=== PATIENT | male | born 1955 | race Caucasian/White ===

== ENCOUNTER → 2019-09-03 | Outpatient (CLI) | payer BC ==
[2019-09-03 09:11] LABS: Basophils # (auto) 0 uL; Eosinophils # (auto) 0.1 uL; Lymphocytes # (auto) 1.5 uL; Neutrophils # (auto) 6.2 uL; Nucleated Red Blood Cells % 0.1 %; White Blood Cell 8.4 10^3/uL (4.4-10.8)
[2019-09-03 09:14] LABS: Basophils % (auto) 0.3 % (0.0-2.0); Eosinophils % (auto) 0.9 % (0.0-7.0); Hemoglobin 17.6 g/dL (13.5-17.5); Lymphocytes % (auto) 17.4 % (10.0-50.0); Mean Corpuscular Hemoglobin 34.1 pg (28.0-32.0); Mean Corpuscular Hgb Conc. 34.6 g/dL (32.0-36.0); Mean Corpuscular Volume 98.4 fL (80.0-100.0); Monocytes # (auto) 0.6 uL; Monocytes % (auto) 6.9 % (0.0-12.0); Neutrophils % (auto) 74.5 % (37.0-80.0); Platelet Count (auto) 261 10^3/uL (140-450); Red Blood Cells 5.18 10^6/uL (4.5-5.90); Red Cell Distribution Width 13.4 % (11.8-14.3)
[2019-09-03 09:24] LABS: Urine Bacteria NONE SEEN /hpf (None Seen); Urine Blood Negative /uL (Negative); Urine Mucus FEW (None Seen); Urine Specific Gravity 1.014 (1.001-1.035); Urine WBC 8 /hpf (0 - 3)
[2019-09-03 09:44] LABS: Potassium 4.5 mmol/L (3.5-5.1)
[2019-09-03 09:58] LABS: Albumin 3.9 g/dL (3.4-5.0); Bilirubin, Total 0.7 mg/dL (0.2-1.0); Calcium 9.1 mg/dL (8.5-10.1); Total Protein 7.3 g/dL (6.4-8.2)
[2019-09-03 10:06] LABS: Free T4 (Free Thyroxine) 1.01 ng/dL (0.89-1.76)
[2019-09-03 10:13] LABS: Prostate Specific Antigen 5.69 ng/mL (0.0-4.0)
== END | disposition home or self-care (01) ==
LOC: LAB 08:33
PROVIDERS: ATTEND Internal Medicine
DX: N20.0 Calculus of kidney (principal); N52.9 Male erectile dysfunction, unspecified; R05 Cough
CPT/HCPCS: 36415; 80053; 80061; 81001; 84153; 84154; 84403; 84439; 84443; 85025; 85652

== ENCOUNTER → 2020-04-26 | Outpatient (CLI) | payer BC ==
[2020-04-26 09:21] LABS: Basophils # (auto) 0.1 10 ^3/uL (0-0.2); Eosinophils # (auto) 0.1 10 ^3/uL (0-0.8); White Blood Cell 10.3 10^3/uL (4.4-10.8)
[2020-04-26 09:23] LABS: Basophils % (auto) 0.6 % (0.0-2.0); Eosinophils % (auto) 0.7 % (0.0-7.0); Hematocrit 51.6 % (41.0-53.0); Hemoglobin 18.1 g/dL (13.5-17.5); Lymphocytes # (auto) 1.9 10 ^3/uL (0.4-5.4); Lymphocytes % (auto) 18.1 % (10.0-50.0); Mean Corpuscular Hemoglobin 34.5 pg (28.0-32.0); Mean Corpuscular Hgb Conc. 35.2 g/dL (32.0-36.0); Mean Corpuscular Volume 98.1 fL (80.0-100.0); Monocytes # (auto) 0.8 10 ^3/uL (0-1.3); Monocytes % (auto) 7.3 % (0.0-12.0); Neutrophils # (auto) 7.5 10 ^3/uL (1.6-8.6); Neutrophils % (auto) 73.3 % (37.0-80.0); Platelet Count (auto) 272 10^3/uL (140-450); Red Blood Cells 5.26 10^6/uL (4.5-5.90); Red Cell Distribution Width 12.9 % (11.8-14.3)
== END | disposition home or self-care (01) ==
LOC: LAB 09:07
PROVIDERS: ATTEND Internal Medicine
DX: I70.0 Atherosclerosis of aorta (principal); R73.01 Impaired fasting glucose; R97.20 Elevated prostate specific antigen [PSA]
CPT/HCPCS: 36415; 83036; 84153; 84154; 85025

== ENCOUNTER → 2021-06-08 | Day surgery (SDC) | payer BC ==
[2021-06-02 13:04] LABS: Basophils # (auto) 0.1 10 ^3/uL (0-0.2); Basophils % (auto) 0.6 % (0.0-2.0); Eosinophils # (auto) 0 10 ^3/uL (0-0.8); Eosinophils % (auto) 0.3 % (0.0-7.0); Hematocrit 52.2 % (41.0-53.0); Hemoglobin 17.6 g/dL (13.5-17.5); Lymphocytes # (auto) 2.1 10 ^3/uL (0.4-5.4); Lymphocytes % (auto) 20.8 % (10.0-50.0); Mean Corpuscular Hgb Conc. 33.6 g/dL (32.0-36.0); Mean Corpuscular Volume 98.1 fL (80.0-100.0); Monocytes # (auto) 0.6 10 ^3/uL (0-1.3); Neutrophils # (auto) 7.3 10 ^3/uL (1.6-8.6); Neutrophils % (auto) 72.3 % (37.0-80.0); Nucleated Red Blood Cells % 0.1 %; Red Blood Cells 5.32 10^6/uL (4.5-5.90); Red Cell Distribution Width 13.5 % (11.8-14.3); White Blood Cell 10.1 10^3/uL (4.4-10.8)
[2021-06-02 13:07] LABS: Urine Bacteria NONE SEEN /hpf (None Seen); Urine Blood Negative /uL (Negative); Urine Mucus FEW (None Seen); Urine Specific Gravity 1.018 (1.001-1.035); Urine WBC 15 /hpf (0 - 3)
[2021-06-02 13:11] LABS: INR 0.99 (0.9-1.15); Partial Thromboplastin Time 28.9 sec (23.6-33.0)
[2021-06-02 13:44] LABS: Albumin 3.8 g/dL (3.4-5.0); Calcium 9.1 mg/dL (8.5-10.1); Potassium 4.1 mmol/L (3.5-5.1)
[2021-06-02 13:47] LABS: BUN/Creatinine Ratio 9.3; Bilirubin, Total 0.7 mg/dL (0.2-1.0); Total Protein 7.3 g/dL (6.4-8.2)
[~2021-06-08] MED LIST: CIPROFLOXACIN 400MG/200ML 200 ML IV ONE; DexAMETHasone SOD PHOS 10MG/1ML VIAL INJ ONE; HYDROmorphone HCL 2 MG/ML VL IV PRN; LABETALOL HCL 5 MG/ML 4ML SYRINGE IV PRN; MIDAZOLAM HCL 2MG/2ML 2ml VIAL (1mg/ml) IV PRN; MORPHINE SULFATE 4 MG/ML SYR/VIAL IV PRN; ONDANSETRON HCL 4 MG/2 ML VIAL IV PRN; PROPOFOL 10 MG/ML 20 ML IV ONE; ePHEDrine SULFATE 50 MG/ML AMP IV PRN
[2021-06-08 08:45] VITALS: BP 118/59
== END | disposition home or self-care (01) ==
LOC: SUR 06:21
PROVIDERS: ATTEND Urology
DX: R97.20 Elevated prostate specific antigen [PSA] (principal); I10 Essential (primary) hypertension; F17.200 Nicotine dependence, unspecified, uncomplicated; I25.10 Atherosclerotic heart disease of native coronary artery without angina pectoris; Z98.890 Other specified postprocedural states; Z79.899 Other long term (current) drug therapy; Z20.822 Contact with and (suspected) exposure to COVID-19
CPT/HCPCS: 36415; 55700; 80053; 81001; 85025; 85610; 85730; 88312; 88342; J0744; J1100; J2704; U0003; 76872

== ENCOUNTER → 2022-05-24 | Outpatient (CLI) | payer BC ==
[2022-05-24 08:16] LABS: Basophils # (auto) 0.1 10 ^3/uL (0-0.2); Basophils % (auto) 0.6 % (0.0-2.0); Eosinophils # (auto) 0 10 ^3/uL (0-0.8); Eosinophils % (auto) 0.4 % (0.0-7.0); Hemoglobin 18.3 g/dL (13.5-17.5); Lymphocytes # (auto) 1.7 10 ^3/uL (0.4-5.4); Lymphocytes % (auto) 19.1 % (10.0-50.0); Mean Corpuscular Hemoglobin 33.1 pg (28.0-32.0); Mean Corpuscular Volume 97.4 fL (80.0-100.0); Monocytes # (auto) 0.6 10 ^3/uL (0-1.3); Monocytes % (auto) 7.3 % (0.0-12.0); Neutrophils # (auto) 6.5 10 ^3/uL (1.6-8.6); Neutrophils % (auto) 72.6 % (37.0-80.0); Nucleated Red Blood Cells % 0.1 %; Red Blood Cells 5.54 10^6/uL (4.5-5.90); Red Cell Distribution Width 13.5 % (11.8-14.3); White Blood Cell 8.9 10^3/uL (4.4-10.8)
[2022-05-24 08:44] LABS: Urine Bacteria NONE SEEN /hpf (None Seen); Urine Blood Negative /uL (Negative); Urine Mucus FEW (None Seen); Urine Specific Gravity 1.019 (1.001-1.035); Urine WBC 3 /hpf (0 - 3)
[2022-05-24 09:07] LABS: Free T4 (Free Thyroxine) 1.09 ng/dL (0.89-1.76)
[2022-05-24 09:20] LABS: Potassium 5.2 mmol/L (3.5-5.1)
[2022-05-24 09:27] LABS: Albumin 3.7 g/dL (3.4-5.0)
[2022-05-24 09:34] LABS: Total Protein 6.9 g/dL (6.4-8.2)
[2022-05-24 09:44] LABS: BUN/Creatinine Ratio 8.4
[2022-05-24 09:45] LABS: Bilirubin, Total 0.7 mg/dL (0.2-1.0); Calcium 9.3 mg/dL (8.5-10.1)
[2022-05-24 12:53] LABS: Prostate Specific Antigen 7.15 ng/mL (0.0-4.0)
== END | disposition home or self-care (01) ==
LOC: LAB 07:56
PROVIDERS: ATTEND Internal Medicine
DX: N40.0 Benign prostatic hyperplasia without lower urinary tract symptoms (principal); I10 Essential (primary) hypertension; J44.9 Chronic obstructive pulmonary disease, unspecified
CPT/HCPCS: 36415; 80053; 80061; 81001; 84153; 84154; 84439; 84443; 85025; 85652

== ENCOUNTER → 2024-10-05 | Outpatient (CLI) | payer BC ==
[2024-10-05 07:18] LABS: Urine Bacteria None Seen /hpf (None Seen)
[2024-10-05 07:51] LABS: Urine Blood Negative /uL (Negative); Urine Clarity Clear (Clear); Urine Color Light-Yellow (Yellow); Urine Mucus FEW (None Seen); Urine Protein, UAD Negative (Negative); Urine Specific Gravity 1.019 (1.001-1.035); Urine Squamous Epithelial Cell None Seen /hpf (<5); Urine Urobilinogen Normal (Negative); Urine WBC 4 /HPF (0-3); Urine pH 5.5 (5.0-9.0)
[2024-10-05 08:21] LABS: Alanine Aminotransferase 15 U/L (7-40); Albumin 3.9 g/dL (3.2-4.8); Alkaline Phosphatase 71 U/L (46-116); Anion Gap 5 (5-15); Aspartate Aminotransferase 19 U/L (13-40); BUN/Creatinine Ratio 8.3 (10.0-20.0); Blood Urea Nitrogen 10 mg/dL (9-23); Calcium 9.4 mg/dL (8.7-10.4); Carbon Dioxide 29 mmol/L (20-31); LDL Cholesterol 92 mg/dL (< 100); Potassium 4.6 mmol/L (3.5-5.1); Sodium 142 mmol/L (136-145); Total Protein 6.2 g/dL (5.7-8.2); Triglycerides 141 mg/dL (< 150)
[2024-10-05 08:22] LABS: Bilirubin, Total 0.9 mg/dL (0.2-1.0); Cholesterol 159 mg/dL (< 200); HDL Cholesterol 47 mg/dL (40-59)
[2024-10-05 08:23] LABS: Basophils # (auto) 0 10 ^3/uL (0-0.2); Basophils % (auto) 0.3 % (0.0-2.0); Chloride 108 mmol/L (98-107); Eosinophils # (auto) 0.1 10 ^3/uL (0-0.8); Eosinophils % (auto) 0.8 % (0.0-7.0); Glucose 130 mg/dL (74-106); Hematocrit 49.9 % (41.0-53.0); Hemoglobin 16.8 g/dL (13.5-17.5); Lymphocytes # (auto) 1.8 10 ^3/uL (0.4-5.4); Lymphocytes % (auto) 20.9 % (10.0-50.0); Mean Corpuscular Hemoglobin 32.8 pg (28.0-32.0); Mean Corpuscular Hgb Conc. 33.7 g/dL (32.0-36.0); Mean Corpuscular Volume 97.2 fL (80.0-100.0); Monocytes # (auto) 0.7 10 ^3/uL (0-1.3); Monocytes % (auto) 8.7 % (0.0-12.0); Neutrophils # (auto) 5.8 10 ^3/uL (1.6-8.6); Neutrophils % (auto) 69.3 % (37.0-80.0); Nucleated Red Blood Cells % 0.1 %; Platelet Count (auto) 251 10^3/uL (140-450); Red Blood Cells 5.13 10^6/uL (4.5-5.90); Red Cell Distribution Width 14.2 % (11.8-14.3); White Blood Cell 8.4 10^3/uL (4.4-10.8)
[2024-10-05 09:16] LABS: Erythrocyte Sedimentation Rate 2 mm/hr (0-20)
[2024-10-05 11:13] LABS: Free T4 (Free Thyroxine) 1.05 ng/dL (0.89-1.76)
[2024-10-05 11:33] LABS: Prostate Specific Antigen 5.91 ng/mL (0.0-4.0)
[2024-10-06 08:07] LABS: PSA Free 0.75 ng/mL; Prostate Specific Antigen 7.1 ng/mL (0.0-4.0)
== END | disposition home or self-care (01) ==
LOC: LAB 07:00
PROVIDERS: ATTEND Internal Medicine
DX: N40.1 Benign prostatic hyperplasia with lower urinary tract symptoms (principal); J44.9 Chronic obstructive pulmonary disease, unspecified; E78.00 Pure hypercholesterolemia, unspecified
CPT/HCPCS: 36415; 80053; 80061; 81001; 84153; 84154; 84439; 84443; 85025; 85652

== ENCOUNTER 2024-12-17 06:04 | Day surgery (SDC) | payer BC ==
[2024-12-14 10:23] LABS: Basophils # (auto) 0.1 10 ^3/uL (0-0.2); Basophils % (auto) 1.5 % (0.0-2.0); Eosinophils # (auto) 0 10 ^3/uL (0-0.8); Hematocrit 51.7 % (41.0-53.0); Hemoglobin 17.9 g/dL (13.5-17.5); Lymphocytes # (auto) 1.4 10 ^3/uL (0.4-5.4); Lymphocytes % (auto) 14.8 % (10.0-50.0); Mean Corpuscular Hemoglobin 33.1 pg (28.0-32.0); Mean Corpuscular Hgb Conc. 34.7 g/dL (32.0-36.0); Mean Corpuscular Volume 95.4 fL (80.0-100.0); Monocytes # (auto) 0.7 10 ^3/uL (0-1.3); Monocytes % (auto) 7.1 % (0.0-12.0); Neutrophils # (auto) 7.1 10 ^3/uL (1.6-8.6); Neutrophils % (auto) 76.6 % (37.0-80.0); Platelet Count (auto) 266 10^3/uL (140-450); Red Blood Cells 5.41 10^6/uL (4.5-5.90); Red Cell Distribution Width 14.2 % (11.8-14.3); White Blood Cell 9.2 10^3/uL (4.4-10.8)
[2024-12-14 10:25] LABS: Urine Bacteria None Seen /hpf (None Seen)
[2024-12-14 10:39] LABS: Urine Blood Negative /uL (Negative); Urine Clarity Clear (Clear); Urine Color Colorless (Yellow); Urine Protein, UAD Negative (Negative); Urine Specific Gravity 1.005 (1.001-1.035); Urine Squamous Epithelial Cell None Seen /hpf (<5); Urine Urobilinogen Normal (Negative); Urine WBC 5 /HPF (0-3); Urine pH 5.5 (5.0-9.0)
[2024-12-14 10:42] LABS: Alanine Aminotransferase 21 U/L (7-40); Albumin 4.4 g/dL (3.2-4.8); Alkaline Phosphatase 78 U/L (46-116); Anion Gap 5 (5-15); Aspartate Aminotransferase 22 U/L (13-40); BUN/Creatinine Ratio 9.6 (10.0-20.0); Blood Urea Nitrogen 11 mg/dL (9-23); Carbon Dioxide 29 mmol/L (20-31); Chloride 107 mmol/L (98-107); Potassium 4.6 mmol/L (3.5-5.1); Sodium 141 mmol/L (136-145)
[2024-12-14 10:43] LABS: Bilirubin, Total 0.5 mg/dL (0.2-1.0)
[2024-12-14 10:44] LABS: Glucose 120 mg/dL (74-106)
[2024-12-14 10:56] LABS: INR 0.95 (0.9-1.15); Partial Thromboplastin Time 29.5 SEC (24.5-34.5); Prothrombin Time 10.1 sec (9.3-11.8)
[~2024-12-17] VITALS: Ht 182.9 cm; Wt 70.3 kg
[~2024-12-17 06:04] MED LIST changes: -CIPROFLOXACIN 400MG/200ML 200 ML IV ONE; -DexAMETHasone SOD PHOS 10MG/1ML VIAL INJ ONE; -HYDROmorphone HCL 2 MG/ML VL IV PRN; -LABETALOL HCL 5 MG/ML 4ML SYRINGE IV PRN; -MIDAZOLAM HCL 2MG/2ML 2ml VIAL (1mg/ml) IV PRN; -MORPHINE SULFATE 4 MG/ML SYR/VIAL IV PRN; -ONDANSETRON HCL 4 MG/2 ML VIAL IV PRN; -PROPOFOL 10 MG/ML 20 ML IV ONE; +TAMS0.4C39 PO; -ePHEDrine SULFATE 50 MG/ML AMP IV PRN
[2024-12-17] MEDS ORDERED: CIPROFLOXACIN 400MG/200ML 200 ML IV ONE (06:16)
[2024-12-17] MEDS ORDERED: fentaNYL CITRATE 100 MCG/2 ML VL ONE (07:26)
[2024-12-17] MEDS ORDERED: MIDAZOLAM HCL 2MG/2ML 2ml VIAL (1mg/ml) ONE (07:26)
[2024-12-17] MEDS ORDERED: DexAMETHasone SOD PHOS 10MG/1ML VIAL INJ ONE (07:36)
[2024-12-17] MEDS ORDERED: PROPOFOL 10 MG/ML 20 ML IV ONE (07:36)
[2024-12-17 08:05] VITALS: PULSE 58; RESP 15; O2SAT 99
--- NOTE | 2024-12-17 08:07 | DVHNC2 ---
Procedure - OPERATIVE REPORT Pre-op. Diagnosis: LUTS/BPH ELEVATED PSA 7.1 (4K Score 37%) Renal stone, 2 mm Hematuria Post-op. Diagnosis: LUTS ELEVATED PSA BPH Operation: Cystoscopy TRUS prostate biopsy Anesthesia: Sedation Indications: Patient with history of elevated PSA, s/p TRUS prostate biopsy that was negative in 2020, who had an increase in PSA. Patient also has history of lower urinary tract symptoms with hesitancy, occasional straining, incomplete bladder emptying, nocturia. He also has a 2 mm left renal stone. Benefits and risks of procedures were discussed with the patient who understood and agreed with surgery. Details of Procedure: Patient was brought to the OR and placed in supine position in the OR table. Anesthesia was induced and patient was placed in lithotomy position. He was p repped and draped in sterile fashion. Using a 21 Fr. rigid cystoscope with a 30 degree lens we entered the urethra and in to the bladder. The prostate was found to be obstructing, with kissing lateral lobes and high median bar, no intrusion of the prostate into the bladder. the bladder was found to have mild trabeculations, no foreign bodies, no lesions, bilateral ureteral orifices in orthotopic position. The bladder was emptied through the cystoscope sheath. At this point using an ultrasound probe with a biopsy guide we proceeded to enter the rectum. The prostate was measured as 50.55 cc. There were nonspecific hypoechoic areas. The neurovascular bundles were infiltrated bilaterally with Lidocaine 1%, for a total of 10 cc. At this point we proceeded to take 12 cores samples from the prostate from the right base lateral, right base medial, right mid lateral, right mid medial, right apex lateral, right apex medial and subsequently the same areas on the left. Patient tolerated the procedure well and was transferred to recovery awake and in stable conditions. Specimens: Prostate tissue from the above areas total of 12 cores Complications: None KERRI PABLO MD December 17, 2024 08:07
--- NOTE | 2024-12-17 08:08 | DVHDS2 ---
New Physician D'charge PN Admitting Diagnosis Admitting Diagnosis BPH Elevated PSA Hematuria Left nephrolithiasis, 2 mm Discharge Diagnosis Same Operations or Procedures Cystoscopy Transrectal ultrasound-guided prostate biopsy Reason(s) For Hospitalization Surgery Treatment Plan Discharge Condition of Discharge Good Disposition Home Discharge Instructions Diet: Regular Activity: Light activity Activity comment: As tolerated Medications: Given Follow Up Care Follow Up/Referral: Follow up in two weeks for pathology review Discharge Statement: "Patient was advised to return to the ER or call 911 if any headaches, dizziness, shortness of breath, chest pain, abdominal pain, bleeding, fevers, or worsening of medical condition. Patient was counseled about treatment plan, medications, possible side effects, patientverbalized understanding. All questions were answered to the best of my ability. This discharge took greater then 30 minutes in planning, reviewing documentation, counseling the patient, and discussing with other team members." KERRI PABLO MD December 17, 2024 08:08
[2024-12-17] MEDS ORDERED: MORPHINE SULFATE 4 MG/ML SYR/VIAL IV PRN (08:30)
[2024-12-17] MEDS ORDERED: MIDAZOLAM HCL 2MG/2ML 2ml VIAL (1mg/ml) IV PRN (08:30)
[2024-12-17] MEDS ORDERED: HYDROmorphone HCL 2 MG/ML VL/or syr IV PRN (08:30)
[2024-12-17] MEDS ORDERED: hydrALAZINE HCL 20 MG/ML VL IV PRN (08:30)
[2024-12-17] MEDS ORDERED: ONDANSETRON HCL 4 MG/2 ML VIAL IV ONE (08:30)
[2024-12-17] MEDS ORDERED: ePHEDrine SULFATE 50 MG/ML AMP IV PRN (08:30)
[2024-12-17 08:40] VITALS: BP 130/62; PULSE 64; RESP 15; O2SAT 96
== END 2024-12-17 08:43 | disposition home or self-care (01) ==
LOC: EEVIPCON → SUR 06:04
PROVIDERS: ATTEND Urology
DX: N40.1 Benign prostatic hyperplasia with lower urinary tract symptoms (principal); R39.11 Hesitancy of micturition; R39.14 Feeling of incomplete bladder emptying; R39.16 Straining to void; R35.1 Nocturia; N20.0 Calculus of kidney; R97.20 Elevated prostate specific antigen [PSA]; N13.8 Other obstructive and reflux uropathy
CPT/HCPCS: 36415; 55700; 80053; 81001; 85025; 85610; 85730; 87086; 88305; 88342; A4344; J0744; J1100; J2250; J2704; J3010; J7030; 76872

== ENCOUNTER 2024-12-25 14:40 | Emergency (ER) | payer BC ==
[~2024-12-25] VITALS: Ht 182.9 cm; Wt 68.9 kg
--- NOTE | 2024-12-25 15:13 | ED.PDOC ---
General HPI Comments HPI: Poor Historian. 69-year-old male presents to emergency department for evaluation of some right groin discomfort status post urological procedure done this past . Patient is currently on Cipro. Patient has stopped taking his Flomax. Patient this morning had some dizziness and was not feeling right and decided to come here for further evaluation. Patient denies any other acute symptoms. Past Medical History: Enlarged prostate, kidney stones Past Surgical History: Prostate surgery, kidney stone procedure. TRUS prostate biopsy, LUTS/BPH, Cystoscopy REVIEW OF SYSTEMS: CONSTITUTIONAL: Denies acute: fever, diaphoresis, chills, generalized weakness. HEAD: Denies acute: headache, photophobia Eyes: Denies acute: Double vision, vision loss, eye pain, eye discharge. EARS: Denies acute: tinnitus, hearing loss, ear discharge, ear pain, THROAT: Denies acute: sore throat, swelling, difficulty swallowing , pain with swallowing, change in voice. NECK: Denies acute: neck pain, neck swelling, stiff neck. HEART: Denies acute : chest pain, palpitations, LUNGS: Denies acute: SOB, wheezing, cough, hemoptysis ABDOMEN: Denies acute: abdominal pain, Nausea, Vomiting, diarrhea, melena , hematemesis, hematochezia SKIN: Denies acute: rash, redness, lesions, itchiness. EXTREMITIES: Denies acute: calf pain, numbness, tingling, weakness, denies pain in extremity. Denies acute: Low back pain. Neuro: Denies acute: focal neurological deficit, motor or sensory focal neurological deficit, tremors, seizure like activity, confusion, change in mental status, loss of bowel or bladder function, cauda equina like symptoms. : Denies acute: dysuria, flank pain, increase in urinary frequency. PSYCH: Denies acute: hallucination, suicidal ideation, homicidal ideation. PHYSICAL EXAM: General: ---no-----acute distress, awake and alert. Head: normocephalic, atraumatic. Neck: supple, trachea is midline, no swelling. Throat: Normal phonation. Eyes:, no erythema, no purulent discharge, no proptosis, no icterus. Heart: regular rate, regular rhythm, no significant murmur appreciated. Lungs: no apparent respiratory distress, Able to speak in full sentences. No wheezing, no rhonchi, no crackles. No stridors Clear to auscultation bilaterally. Abdomen: non tender to palpation, non distended, soft, no guarding, no rebound, + bowel sounds. Neuro: Awake, Alert, oriented to name, self, situation, follows commands GCS=15. Speech is normal. Skin: no petechia, no purpura, no cyanosis, non-pale, not jaundice. Lower extremities: --no - Pitting edema no deformity, no focal swelling, no calf TTP. Makes eye contact. moves all four extremities. Face: no apparent facial droop. Ambulating in the ED independently. ED COURSE: Time Seen by MD: 14:47 Reviewed notes: Allergies Allergies: Coded Allergies: NO KNOWN ALLERGIES (Unverified , 06/08/21) Home Meds Reported Medications Tamsulosin Hcl (Tamsulosin Hcl) 0.4 Mg Cap, 0.4 MG PO DAILY, CAP 12/14/24 Information Source: Patient Was a procedure done? Was a procedure done?: No Differential Diagnosis Kidney stone (Female): N/A Penile/Scrotal: Epidiymitis, Foreign Body, Prostatitis, STD, UTI, Fractured Penis, Phimosis, Hydrocele, Testicular Torsion, Urolithiasis, Urinary Retention Urinary Problem (Male): Bladder Outlet, Bladder Obstruction, Epididymitis, Prostatitis, Plelonephritis, Post op Complications, Renal Failure, Urethritis, Urinary Retention, Urolithiasis, UTI X-Ray, Labs, Meds, VS Vital Signs Date Time Temp Pulse Resp B/P (MAP) Pulse Ox O2 Delivery O2 Flow Rate FiO2 12/25/24 16:10 Room Air* 0 21 12/25/24 16:05 98.6 61 16 144/70 (94) 97 98.6 12/25/24 15:49 98.6 61 16 144/70 (94) 97 98.6 Lab Test 12/25/24 16:05 12/25/24 15:19 Range/Units Urine Color Light-yellow Yellow Urine Clarity Clear Clear Urine pH 5.0 5.0-9.0 Urine Specific [place] 1.013 1.001-1.035 Urine Protein Negative Negative Urine Ketones Trace Negative Urine Blood 2+ H Negative /uL Urine Nitrite Negative Negative Urine Bilirubin Negative Negative Urine Urobilinogen Normal Negative mg/dL Urine Leukocyte Esterase 1+ Negative /uL Urine RBC 3 0 - 3 /hpf Urine Microscopic WBC 3 0-3 /HPF Urine Squamous Epithelial Cells Few <5 /hpf Urine Bacteria None seen None Seen /hpf Urine Mucus Few None Seen Urine Glucose Normal Normal mg/dL White Blood Count 10.5 4.4-10.8 10^3/uL Red Blood Count 5.06 4.5-5.90 10^6/uL Hemoglobin 16.7 13.5-17.5 g/dL Hematocrit 48.7 41.0-53.0 % Mean Corpuscular Volume 96.2 80.0-100.0 fL Mean Corpuscular Hemoglobin 33.0 H 28.0-32.0 pg Mean Corpuscular Hemoglobin Concent 34.3 32.0-36.0 g/dL Red Cell Distribution Width 14.0 11.8-14.3 % Platelet Count 275 140-450 10^3/uL Mean Platelet Volume 7.8 6.9-10.8 fL Neutrophils (%) (Auto) 74.1 37.0-80.0 % Lymphocytes (%) (Auto) 17.4 10.0-50.0 % Monocytes (%) (Auto) 7.8 0.0-12.0 % Eosinophils (%) (Auto) 0.2 0.0-7.0 % Basophils (%) (Auto) 0.5 0.0-2.0 % Neutrophils # (Auto) 7.8 1.6-8.6 10 ^3/uL Lymphocytes # (Auto) 1.8 0.4-5.4 10 ^3/uL Monocytes # (Auto) 0.8 0-1.3 10 ^3/uL Eosinophils # (Auto) 0 0-0.8 10 ^3/uL Basophils # (Auto) 0.1 0-0.2 10 ^3/uL Nucleated Red Blood Cells 0.1 % Sodium Level 138 136-145 mmol/L Potassium Level 4.6 3.5-5.1 mmol/L Chloride Level 105 98-107 mmol/L Carbon Dioxide Level 27 20-31 mmol/L Anion Gap 6 5-15 Blood Urea Nitrogen 12 9-23 mg/dL Creatinine 1.10 0.700-1.30 mg/dL Glomerular Filtration Rate Calc 73 >90 mL/min BUN/Creatinine Ratio 10.9 10.0-20.0 Serum Glucose 118 H 74-106 mg/dL Lactic Acid Level 0.7 0.4-2.0 mmol/L Calcium Level 9.3 8.7-10.4 mg/dL Total Bilirubin 0.6 0.2-1.0 mg/dL Aspartate Amino Transferase (AST) 21 13-40 U/L Alanine Aminotransferase (ALT) 18 7-40 U/L Alkaline Phosphatase 73 46-116 U/L Troponin I High Sensitivity 4 </=54 ng/L Total Protein 6.3 5.7-8.2 g/dL Albumin 4.2 3.2-4.8 g/dL [place] [address] Ph: [phone] DIAGNOSTIC IMAGING Diagnostic Imaging Report : [id number] Signed PATIENT: EBEN HOLLIS ACCT: [id number] UNIT: [id number] : 1955 LOC: ER ROOM / BED: / AGE / SEX: 69 / M ADM STATUS: REG ER SERVICE 1547 ORDERING PHYSICIAN: ABBIE BATISTA DO PROCEDURE(s): TESUS - TESTICULAR ULTRASOUND REASON: pain ORDER NUMBER(s): [id number], ACCESSION NUMBER(s): [id number] Testicular Duplex Complete Date: 12/25/2024 03:54 PM Clinical History: pain Comparison: None Images submitted: 70 Findings: Duplex Doppler evaluation of the testes including color Doppler and spectral/pulsed waveform analysis was performed. There is arterial and venous flow detected in the right and left testes. Murali ateral varicocele. The right testes measures 3.96 x 2.58 x 3.18 cm. The left testes measures 4.19 x 2.06 x 2.33 cm. Both testes have normal echotexture. The right epididymis measures 1.33 cm with normal echotexture. The left epididymis measures 1.6 cm with with epididymal cyst measuring 0.7 x 0.6 x 0.8 cm. IMPRESSION: 1. Arterial and venous flow detected in the right and left testes. Please correlate with the testicular ultrasound study from the same time. 2. Bilateral varicocele 3. 3. Left epididymal cyst ATED BY: SAGRARIO YOUNG MD DICTATED DATE/TIME: 12/25/241703 SIGNED BY: SAGRARIO YOUNG MD SIGNED DATE/TIME: 12/25/241703 CC: [place] [id number] Ph: [phone] DIAGNOSTIC IMAGING Diagnostic Imaging Report : [id number] Signed PATIENT: EBEN HOLLIS ACCT: [id number] UNIT: [id number] : 1955 LOC: ER ROOM / BED: / AGE / SEX: 69 / M ADM STATUS: REG ER SERVICE 1510 ORDERING PHYSICIAN: ABBIE BATISTA DO PROCEDURE(s): ABPL - CT AB PEL WO CON-NO ORAL OR IV REASON: dizzy, R groin pain s/p procedure ORDER NUMBER(s): [id number], ACCESSION NUMBER(s): [id number] Exam: CT CT AB PEL WO CON-NO ORAL OR IV History: dizzy, R groin pain s/p procedure Comparison Study: None TECHNIQUE: Multidetector CT of the abdomen and pelvis without IV contrast. Axial, coronal and sagittal multiplanar reformats were obtained from the axial data set by the technologist. Radiation Dose Information: CT Dose: CTDI volume is 7.11 mGy. Dose-length product is 365.03 mGy*cm FINDINGS: Bibasilar atelectasis. Partially visualized heart is unremarkable. Liver, spleen, gallbladder, pancreas and adrenal glands are unremarkable. Punctate nonobstructing left renal calculus. Otherwise, kidneys, and ureters unremarkable. Urinary bladder is mildly distended demonstrating wall thickening. Prostate measures 5 x 6 x 5.5 cm. Stomach is unremarkable. Small bowel loops are unremarkable. Appendix is unremarkable. Sigmoid diverticulosis without diverticulitis. Small to moderate amount of fecal material within the colon. No evidence of intraperitoneal free air or free fluid. No evidence of aortic aneurysm. Moderate to heavy atherosclerotic calcification of the aorta and bilateral iliacs. No significant lymphadenopathy. Small fat containing periumbilical hernia. Small fat containing bilateral inguinal hernias. No destructive osseous lesions are noted. Bilateral L5 pars defect with grade 1 anterolisthesis of L5 on S1. Diffuse demineralization. IMPRESSION: Wall thickening of the urinary bladder. Recommend correlation with urinalysis for possible cystitis. Enlarged prostate. Recommend correlation with PSA. Nonobstructing left renal calculus. Sigmoid diverticulosis without diverticulitis. Small fat containing bilateral inguinal hernias with small fat containing periumbilical hernia. ATED BY: LESLIE RIVERA DO DICTATED DATE/TIME: 12/25/24 1549 SIGNED BY: LESLIE RIVERA DO SIGNED DATE/TIME: 12/25/24 1549 CC: Time of 1ST Reevaluation: 00:00 Reevaluation 1ST: Unchanged Patient Education/Counseling: Diagnosis, Treatment Family Education/Counseling: Diagnosis, Treatment Comments Patient presented with the above HPI.--right inguinal/testicular discomfort postoperative----workup was initiated. patient was found with the above mentioned diagnosis. the following medications were ordered: please refer to order lists of meds and tests obtained by myself Dr. Batista. Patient ED course and VS have been stabilized. Patient has been reassessed in the ED and remained in a stable condition. Pertinent incidental findings were discussed with the patient and/or family. Patient/family voices understanding and is agreeable with plan. Patient has been observed in the ED adequate length of time to insure improvement/stability. Escalation of care considered: Consideration of escalation to observation or admission Patient was DISCHARGED home in a stable condition. All the reports of any imaging studies that were ordered by myself were reviewed by myself. Departure 1 Departure Time of Disposition: 17:15 Impression: Primary Impression: Inguinal hernia Additional Impressions: Enlarged prostate Varicocele Epididymal cyst Disposition: 01 HOME / SELF CARE / HOMELESS Condition: Stable Additional Instructions: Additional instructions: You MUST follow-up with your primary care/family doctor in 1 to 2 days. If you are unable to see your primary care/family doctor, please return to our emergency room for re-assessment and re-evaluation in 1 to 2 days. Return to the emergency room here in our facility or to the nearest ER [facility] if your symptoms change or worsen. CONSULTATIONS: you MUST Follow-up for consultation as soon as possible with: -urology in 1-2 days. Please call for appointment. Continue taking antibiotics You MUST call the consultants office yourself to make an appointment. You may need to arrange that through your insurance and/or your primary/family doctor. If you are unable to see the revenue cycle consultant in 1 to 2 days, you must return to our emergency room (or any other ER of your choice) for re-assessment and re- evaluation. Adequate fluid hydration. Below is a copy of your radiological report for follow up: [place] [address] Ph: [phone] DIAGNOSTIC IMAGING Diagnostic Imaging Report : [id number] Signed PATIENT: EBEN HOLLIS ACCT: [id number] UNIT: [id number] : 1955 LOC: ER ROOM / BED: / AGE / SEX: 69 / M ADM STATUS: REG ER SERVICE 1510 ORDERING PHYSICIAN: ABBIE BATISTA DO PROCEDURE(s): ABPL - CT AB PEL WO CON-NO ORAL OR IV REASON: dizzy, R groin pain s/p procedure ORDER NUMBER(s): [id number], ACCESSION NUMBER(s): [id number] Exam: CT CT AB PEL WO CON-NO ORAL OR IV History: dizzy, R groin pain s/p procedure Comparison Study: None TECHNIQUE: Multidetector CT of the abdomen and pelvis without IV contrast. Axial, coronal and sagittal multiplanar reformats were obtained from the axial data set by the technologist. Radiation Dose Information: CT Dose: CTDI volume is 7.11 mGy. Dose-length product is 365.03 mGy*cm FINDINGS: Bibasilar atelectasis. Partially visualized heart is unremarkable. Liver, spleen, gallbladder, pancreas and adrenal glands are unremarkable. Punctate nonobstructing left renal calculus. Otherwise, kidneys, and ureters unremarkable. Urinary bladder is mildly distended demonstrating wall thickening. Prostate measures 5 x 6 x 5.5 cm. Stomach is unremarkable. Small bowel loops are unremarkable. Appendix is unremarkable. Sigmoid diverticulosis without diverticulitis. Small to moderate amount of fecal material within the colon. No evidence of intraperitoneal free air or free fluid. No evidence of aortic aneurysm. Moderate to heavy atherosclerotic calcification of the aorta and bilateral iliacs. No significant lymphadenopathy. Small fat containing periumbilical hernia. Small fat containing bilateral inguinal hernias. No destructive osseous lesions are noted. Bilateral L5 pars defect with grade 1 anterolisthesis of L5 on S1. Diffuse demineralization. IMPRESSION: Wall thickening of the urinary bladder. Recommend correlation with urinalysis for possible cystitis. Enlarged prostate. Recommend correlation with PSA. Nonobstructing left renal calculus. Sigmoid diverticulosis without diverticulitis. Small fat containing bilateral inguinal hernias with small fat containing periumbilical hernia. ATED BY: LESLIE RIVERA DO DICTATED DATE/TIME: 12/25/241548 SIGNED BY: LESLIE RIVERA DO SIGNED DATE/TIME: 12/25/241548 CC: [place] [id number] Ph: [phone] DIAGNOSTIC IMAGING Diagnostic Imaging Report : [id number] Signed PATIENT: EBEN HOLLIS ACCT: [id number] UNIT: [id number] : 1955 LOC: ER ROOM / BED: / AGE / SEX: 69 / M ADM STATUS: REG ER SERVICE 46 ORDERING PHYSICIAN: ABBIE BATISTA DO PROCEDURE(s): TESUS - TESTICULAR ULTRASOUND REASON: pain ORDER NUMBER(s): [id number], ACCESSION NUMBER(s): [id number] Testicular Duplex Complete Date: 12/25/2024 03:54 PM Clinical History: pain Comparison: None Images submitted: 70 Findings: Duplex Doppler evaluation of the testes including color Doppler and spectral/pulsed waveform analysis was performed. There is arterial and venous flow detected in the right and left testes. Bilateral varicocele. The right testes measures 3.96 x 2.58 x 3.18 cm. The left testes measures 4.19 x 2.06 x 2.33 cm. Both testes have normal echotexture. The right epididymis measures 1.33 cm with normal echotexture. The left epididymis measures 1.6 cm with with epididymal cyst measuring 0.7 x 0.6 x 0.8 cm. IMPRESSION: 1. Arterial and venous flow detected in the right and left testes. Please correlate with the testicular ultrasound study from the same time. 2. Bilateral varicocele 3. 3. Left epididymal cyst ATED BY: SAGRARIO YOUNG MD DICTATED DATE/TIME: 12/25/241703 SIGNED BY: SAGRARIO YOUNG MD SIGNED DATE/TIME: 12/25/241703 CC: Discharged With: Self Critical Care Note Critical Care Time?: No I personally scribed for ABBIE BATISTA DO ([email or web address]) on 12/25/24 at 15:37. Electronically submitted by Galindo Hanson ([employer]). I personally scribed for ABBIE BATISTA DO ([email or web address]) on 12/25/24 at 18:01. Electronically submitted by Galindo Hanson ([employer]). ABBIE BATISTA DO December 25, 2024 15:13
[2024-12-25 15:41] LABS: Basophils # (auto) 0.1 10 ^3/uL (0-0.2); Basophils % (auto) 0.5 % (0.0-2.0); Eosinophils # (auto) 0 10 ^3/uL (0-0.8); Eosinophils % (auto) 0.2 % (0.0-7.0); Hematocrit 48.7 % (41.0-53.0); Hemoglobin 16.7 g/dL (13.5-17.5); Lymphocytes # (auto) 1.8 10 ^3/uL (0.4-5.4); Lymphocytes % (auto) 17.4 % (10.0-50.0); Mean Corpuscular Hgb Conc. 34.3 g/dL (32.0-36.0); Mean Corpuscular Volume 96.2 fL (80.0-100.0); Monocytes # (auto) 0.8 10 ^3/uL (0-1.3); Monocytes % (auto) 7.8 % (0.0-12.0); Neutrophils # (auto) 7.8 10 ^3/uL (1.6-8.6); Neutrophils % (auto) 74.1 % (37.0-80.0); Nucleated Red Blood Cells % 0.1 %; Platelet Count (auto) 275 10^3/uL (140-450); Red Blood Cells 5.06 10^6/uL (4.5-5.90); White Blood Cell 10.5 10^3/uL (4.4-10.8)
--- NOTE | 2024-12-25 15:51 | DVH ---
Exam: CT CT AB PEL WO CON-NO ORAL OR IV History: dizzy, R groin pain s/p procedure Comparison Study: None TECHNIQUE: Multidetector CT of the abdomen and pelvis without IV contrast. Axial, coronal and sagitta l multiplanar reformats were obtained from the axial data set by the technologist. Radiation Dose Information: CT Dose: CTDI volume is 7.11 mGy. Dose-length product is 365.03 mGy*cm FINDINGS: Bibasilar atelectasis. Partially visualized heart is unremarkable. Liver, spleen, gallbladder, pancreas and adrenal glands are unremarkable. Punctate nonobstructing left renal calculus. Otherwise, kidneys, and ureters unremarkable. Urinary bl adder is mildly distended demonstrating wall thickening. Prostate measures 5 x 6 x 5.5 cm. Stomach is unremarkable. Small bowel loops are unremarkable. Appendix is unremarkable. Sigmoid divert iculosis without diverticulitis. Small to moderate amount of fecal material within the colon. No evidence of intraperitoneal free air or free fluid. No evidence of aortic aneurysm. Moderate to heavy atherosclerotic calcification of the aorta and princess ateral iliacs. No significant lymphadenopathy. Small fat containing periumbilical hernia. Small fat containing bilateral inguinal hernias. No destru ctive osseous lesions are noted. Bilateral L5 pars defect with grade 1 anterolisthesis of L5 on S1. Diffuse demineralization. IMPRESSION: Wall thickening of the urinary bladder. Recommend correlation with urinalysis for possible cystitis. Enlarged prostate. Recommend correlation with PSA. Nonobstructing left renal calculus. Sigmoid diverticulosis without diverticulitis. Small fat containing bilateral inguinal hernias with small fat containing periumbilical hernia.
[2024-12-25 15:55] LABS: Alanine Aminotransferase 18 U/L (7-40); Albumin 4.2 g/dL (3.2-4.8); Alkaline Phosphatase 73 U/L (46-116); Anion Gap 6 (5-15); Aspartate Aminotransferase 21 U/L (13-40); BUN/Creatinine Ratio 10.9 (10.0-20.0); Blood Urea Nitrogen 12 mg/dL (9-23); Calcium 9.3 mg/dL (8.7-10.4); Carbon Dioxide 27 mmol/L (20-31); Chloride 105 mmol/L (98-107); Potassium 4.6 mmol/L (3.5-5.1); Sodium 138 mmol/L (136-145); Total Protein 6.3 g/dL (5.7-8.2)
[2024-12-25 15:56] LABS: Bilirubin, Total 0.6 mg/dL (0.2-1.0)
[2024-12-25 15:57] LABS: Glucose 118 mg/dL (74-106)
[2024-12-25 16:05] VITALS: BP 144/70; PULSE 61; RESP 16; TEMP 98.6; O2SAT 97
[2024-12-25 16:08] LABS: Urine Bacteria None Seen /hpf (None Seen)
[2024-12-25 16:24] LABS: Urine Blood 2+ /uL (Negative); Urine Clarity Clear (Clear); Urine Color Light-Yellow (Yellow); Urine Mucus FEW (None Seen); Urine Protein, UAD Negative (Negative); Urine Specific Gravity 1.013 (1.001-1.035); Urine Squamous Epithelial Cell FEW /hpf (<5); Urine Urobilinogen Normal (Negative); Urine WBC 3 /HPF (0-3)
--- NOTE | 2024-12-25 17:07 | DVH ---
Testicular Duplex Complete Date: 12/25/2024 03:54 PM Clinical History: pain Comparison: None Images submitted: 70 Findings: Duplex Doppler evaluation of the testes including color Doppler and spectral/pulsed waveform analysis was performed. There is arterial and venous flow detected in the right and left testes. Bilateral varicocele. The right testes measures 3.96 x 2.58 x 3.18 cm. The left testes measures 4.19 x 2.06 x 2.33 cm. Both testes have normal echotexture. The right epididymis measures 1.33 cm with normal echotexture. The l eft epididymis measures 1.6 cm with with epididymal cyst measuring 0.7 x 0.6 x 0.8 cm. IMPRESSION: 1. Arterial and venous flow detected in the right and left testes. Please correlate with the testicul ar ultrasound study from the same time. 2. Bilateral varicocele 3. 3. Left epididymal cyst
[2024-12-25] MEDS: SODIUM CHLORIDE 0.9% 1,000 ML IV ONE (19:37)
== END 2024-12-25 19:36 | disposition home or self-care (01) ==
LOC: ER 14:40
DX: K40.90 Unilateral inguinal hernia, without obstruction or gangrene, not specified as recurrent (principal); N40.0 Benign prostatic hyperplasia without lower urinary tract symptoms; I86.1 Scrotal varices; N50.3 Cyst of epididymis; Z98.890 Other specified postprocedural states
CPT/HCPCS: 36415; 74176; 76870; 80053; 81001; 83605; 84484; 85025